=== PATIENT | female | born 1975 | race Two or more races ===

== ENCOUNTER 2025-07-04 11:00 | Day surgery (SDC) | payer MEDICAID, SELFPAY ==
--- NOTE | 2025-07-03 06:28 | EKG_ITS ---
[facility] Test Date: 2025-07-03 Pat Name: BOAZ JASMINE Department: Room: - Gender: Female Supervisor Inventory Merchandising: ROSEMARIE : 1975 Requested By: Ayo El Order Number: [id number] Reading MD: Ayo El Measurements Intervals [place] Rate: 61 P: 47 CA: 160 QRS: 48 QRSD: 71 T: 45 QT: 404 QTc: 408 Interpretive Statements SINUS RHYTHM No previous ECG available for comparison /[email or web address]/[id number]
[2025-07-03 08:42] VITALS: BMI 30.4
[2025-07-03 09:46] LABS: Anion Gap 8 (7-16); BUN/Creatinine Ratio 11 Ratio (12-20); Blood Urea Nitrogen 8 mg/dL (9-23); Calcium 9.4 mg/dL (8.3-10.6); Carbon Dioxide 25.6 mMol/L (20.0-31.0); Chloride 105 mMol/L (98-107); Creatinine (Component) 0.7 mg/dL (0.6-1.3); Estimated Creatinine Clearance 87.1 mL/min (>60); Glucose 110 mg/dL (74-106); Osmolality,Calculated 276 (275-295); Potassium 4.0 mMol/L (3.4-5.1); Sodium 139 mMol/L (136-145); eGFR > 60 See Note
[2025-07-03 09:57] LABS: Basophils # (Auto) 0.0 Thou/mm3 (0.0-0.2); Basophils % (Auto) 0 % (0-2.5); Eosinophils # (Auto) 0.2 Thou/mm3 (0.0-0.5); Eosinophils % (Auto) 3 % (0-10); Hematocrit 37.2 % (36.0-46.0); Hemoglobin 12.3 g/dL (12.0-16.0); Immature Granulocytes Auto 0.03 Thou/mm3 (0.00-0.00); Lymphocytes # (Auto) 1.7 Thou/mm3 (1.0-4.8); Lymphocytes % (Auto) 25 % (10-50); Mean Corpuscular HGB Conc 33.1 g/dl (31.0-37.0); Mean Corpuscular Hemoglobin 29.5 pg (25.0-35.0); Mean Corpuscular Volume 89 fL (80-100); Monocytes # (Auto) 0.6 Thou/mm3 (0.0-0.8); Monocytes % (Auto) 10 % (0-12); Neutrophils # (Auto) 4.2 Thou/mm3 (1.8-7.7); Neutrophils % (Auto) 62 % (37-80); Nucleated Red Blood Cell # 0.00 Thou/mm3 (0.00-0.00); Nucleated Red Blood Cell % 0 /100 WBC (0); Platelet Count 319 Thou/mm3 (140-440); RDW Standard Deviation 43.9 fL (36.4-46.3); Red Blood Count 4.17 Miln/mm3 (4.00-5.20); White Blood Count 6.8 Thou/mm3 (3.6-11.0)
[2025-07-03 10:18] LABS: INR 1.0 (0.9-1.3); Partial Thromboplastin Time 24.8 Seconds (22.0-36.0); Prothrombin Time 11.3 Seconds (9.0-12.2)
[2025-07-04] VITALS (9 sets, daily range): BP systolic 84–116; BP diastolic 54–70; PULSE 70–81; RESP 18–21; TEMP 36.6–36.7; O2SAT 95–100; BMI 30.4
--- NOTE | 2025-07-04 14:20 | SUR.PHASEI ---
1356: Pt received in [facility] via gurney. Report from Silvio BLISS and Dr. Lee. Pt obtunded. Oral airway in place. Resp even, unlabored. BP low. Anesthesia aware. No recommendations at this time. Dressing to left leg dry, clean, intact. Bilateral pedal pulses strong, regular. 1410: Oral airway dc'c. Resp even, unlabored.
--- NOTE | 2025-07-04 14:27 | SUR.PHASEII ---
1427: pt able to drink water without any difficulty
--- NOTE | 2025-07-04 14:30 | SUR.PHASEII ---
1430: received report from Mar Flores RN. pt alert and oriented. no s/s of resp. distress or discomfort. given pain medication per MD order. dressing to left leg clean, dry and intact. no bleeding or discharge noted from dressing. positive CMS: able to wiggle left toes, cap refill less than 2 seconds and positive pulse.
--- NOTE | 2025-07-04 14:30 | SUR.PHASEII ---
1430: Report to Taylor BLISS.
[2025-07-04] MEDS: fentaNYL CIT INJ 50 mCg/ML AMP 2ML 25 MCG IVP (14:38)
--- NOTE | 2025-07-04 14:41 | ESOP_ITS ---
Date of Procedure 07/04/25 Pre Op Diagnosis Symptomatic varicose veins left lower extremity Post Op Diagnosis Same as preop diagnosis Procedure Radiofrequency ablation of the greater saphenous vein left leg Varicose vein excisions left lower extremity through 10 separate incisions Findings Successful closure of the greater saphenous vein with no evidence of clot at the saphenofemoral junction or common femoral vein All marked varicose veins were successfully removed or disrupted Procedure Description With the patient standing in the preop area the varicose veins to be removed were carefully marked with a sharpie pen. The patient was then brought to the operating room. With the patient supine and under general esthesia left lower extremity sterilely prepped and draped. A timeout was performed. The vein ablation procedure was performed first by mapping out the course of the greater saphenous vein between the knee and the saphenofemoral junction. Ultrasound was used to cannulate the greater saphenous vein just above the knee in the medial thigh with a 21-gauge mini stick needle followed by mini stick wire then a [facility] [facility] introducer was placed. The ablation catheter was then brought to the field prepped then placed into the patient with the tip carefully positioned 3 to 5 cm distal to the saphenofemoral junction. Tumescent anesthesia was then instilled in the the subcutaneous tissues surrounding the vein over the treatment length. Catheter tip position was then again checked and under direct ultrasound comp ression the catheter was activated with 2 cycles proximally and 2 additional cycles down the leg. The saphenofemoral junction was then inspected for flow augmentation and compressibility and there was no evidence of thrombus either in the saphenofemoral junction or the common femoral vein. The sheath and catheter were then removed and pressure was held for hemostasis at the access site. Attention was then turned to the marked varicose veins on the medial calf. They were removed by making a small skin elsy in the marked area then grasping the veins with a mosquito clamp and excising them sequentially. After all veins were either removed or disrupted pressure was held until hemostasis was obtained. The wounds were then cleaned and the skin edges were reapproximated with Steri-Strips. The leg was wrapped first with a sterile dressing and an Chris wrap. Patient woke well from anesthesia was moved to recovery in stable condition Anesthesia other (Laryngeal mask anesthesia) Pathology / specimen Other (Left leg varicose veins) Estimated Blood Loss 75 Condition Stable Disposition PACU Surgeon Ayo Fofana MD Surgical Staff Operation Date: 07/04/25 14:45 Case Staff Anesthesiologist: Artemio Lee RN First Assistant: Maldonado Valenzuela
[2025-07-04] MEDS: MORPHINE SULF INJ 10 MG/ML VIAL 3 MG IVP (14:47)
--- NOTE | 2025-07-04 15:30 | SUR.PHASEII ---
1530: pt discharge to home via wheelchair. pt alert and oriented. no s/s of resp. distress or discomfort. pain 1/10, tolerable per patient. dressing to left leg clean, dry and intact. no bleeding from dressing. positive CMS: positive pulse, cap refill less than 2 seconds and able to wiggle left toes. discharge instructions given to and pt via telephone sign language interpreter [email or web address], all questions were answered. all belongings brought given back to patient.
== END 2025-07-04 15:30 | disposition home or self-care (01) ==
PROVIDERS: PCP Internal Medicine; Referring Provider Surgery Vascular Surgery; Visit Provider Surgery Vascular Surgery
PROC: (CPT 36475; principal; 2025-07-04 14:30)
DX: I83.812 Varicose veins of left lower extremity with pain (principal); Z01.810 Encounter for preprocedural cardiovascular examination
CPT/HCPCS: 36475; 37765; 36415; 80048; 84703; 85025; 85610; 85730; 93005; A4217; C1894; J0131; J0690; J1100; J1885; J2250; J2270; J2405; J2704; J3010; J3490; J7050; J7999